=== PATIENT | female | born 1940 | race Caucasian/White ===

== ENCOUNTER → 2020-05-31 | Outpatient (CLI) | payer MEDICARE ==
[~2020-05-31] MED LIST: ASPIRIN EC81 MG PO; BACTROBAN OINT22 GM EXT; OMNICEF 300 MG300 MG PO; ZOFRAN 4 MG TAB4 MG PO
== END ==
LOC: RAD 15:31
DX: Z22.7 Latent tuberculosis (principal); J43.9 Emphysema, unspecified
CPT/HCPCS: 71046

== ENCOUNTER 2020-06-21 17:00 | Emergency (ER) | payer MEDICARE ==
[~2020-06-21 17:00] MED LIST changes: -BACTROBAN OINT22 GM EXT; -OMNICEF 300 MG300 MG PO
[2020-06-21 19:15] LABS: HEMOGLOBIN 12.2 gm/dl (12.3-15.3); RED BLOOD COUNT 4.25 M/UL (4.00-5.10); WHITE BLOOD COUNT 4.2 K/UL (4.5-11.0)
[2020-06-21 19:32] LABS: BUN/CREATININE RATIO 21 (0-10)
[2020-06-21] MEDS ORDERED: OMNICEF 300 MG300 MG PO (23:17)
== END 2020-06-22 00:37 | disposition home or self-care (01) ==
LOC: ER1 17:00
PROVIDERS: Nurse Practitioner
DX: M54.6 Pain in thoracic spine (principal); E11.9 Type 2 diabetes mellitus without complications; I10 Essential (primary) hypertension; E78.5 Hyperlipidemia, unspecified; Z20.822 Contact with and (suspected) exposure to COVID-19; G20 Parkinson's disease; Z86.73 Personal history of transient ischemic attack (TIA), and cerebral infarction without residual deficits; Z88.5 Allergy status to narcotic agent; Z90.710 Acquired absence of both cervix and uterus
CPT/HCPCS: 0240U; 71045; 72072; 80053; 81001; 82550; 82553; 83605; 83735; 83874; 84484; 85025; 87040; 87086; 93005; 96365; 99284; J0696

== ENCOUNTER 2020-08-06 09:04 | Emergency (ER) | payer MEDICARE ==
[~2020-08-06 09:04] MED LIST changes: +OMNICEF 300 MG300 MG PO
[2020-08-06] MEDS ORDERED: BACTROBAN OINT22 GM EXT (10:07)
== END 2020-08-06 10:52 | disposition home or self-care (01) ==
LOC: ER1 09:04
DX: S01.01XA Laceration without foreign body of scalp, initial encounter (principal); I10 Essential (primary) hypertension; G20 Parkinson's disease; Z86.73 Personal history of transient ischemic attack (TIA), and cerebral infarction without residual deficits; W22.8XXA Striking against or struck by other objects, initial encounter
CPT/HCPCS: 12001; 70450; 99284